=== PATIENT | female | born 1955 | race Caucasian/White ===

== ENCOUNTER 2016-07-20 09:43 | Observation (INO) | payer OTHER ==
[~2016-07-20] VITALS: Ht 167.6 cm; Wt 73.3 kg
[~2016-07-20 09:43] MED LIST: ATORVASTATIN CA40 MG PO; BACTRIM,SEPT1 TABLET PO; LEVOTHYROXINE100 MCG PO
[2016-07-20 10:35] LABS: HEMATOCRIT 37.3 % (36.0-46.0); MCH 29.6 PG (29.0-34.0); MCHC 33.5 G/DL (30.0-36.0); MCV 88.4 FL (83-99); MEAN PLAT.VOLUME 9.8 uM^3 (9.5-12.4); PLATELET COUNT 207 K/uL (156-360); RBC DIS.WIDTH-SD 41.1 % (39-53); RED BLOOD COUNT 4.22 M/uL (3.80-5.20); WHITE BLOOD COUNT 5.6 K/uL (4.1-10.2)
[2016-07-20 11:05] LABS: ANION GAP 9 MEQ/L (2-14); CHLORIDE 108 MEQ/L (99-109); POTASSIUM 3.5 MEQ/L (3.7-5.4); SAMPLE HEMOLYSIS CHECK 0; SAMPLE ICTERIC CHECK 0; SAMPLE LIPEMIA CHECK 0; SODIUM 142 MEQ/L (136-147); TOTAL BILIRUBIN 0.6 MG/DL (0.0-1.0)
[2016-07-20 11:10] LABS: ALKALINE PHOSPHATASE 89 IU/L (3-129); GFR ESTIMATE (CALCULATED) > 59 mL/min/; GLUCOSE 105 mg/dL (70-99); LIPASE 62 U/L (1.0-51.0); UREA NITROGEN (BUN) 10 mg/dL (9-23)
[2016-07-20 11:13] LABS: TROP-I INTERPRETATION NEGATIVE; TROPONIN-I < 0.01 ng/mL (0.0-0.30)
[2016-07-20 12:43] VITALS: BP 135/65
[2016-07-21] MEDS ORDERED: LO-DOSE ASPIRIN81 M2 PO (11:39)
[2016-07-21] MEDS ORDERED: DAILY VITE1 EAC1 PO (11:39)
[2016-07-21] MEDS ORDERED: LAMISIL250 MG PO (11:39)
== END 2016-07-20 12:53 | disposition left against medical advice (07) ==
LOC: EME 09:43 → EDOF 12:11
PROVIDERS: Emergency Medicine
DX: R07.9 Chest pain, unspecified (principal); R10.13 Epigastric pain; R11.0 Nausea; Z88.0 Allergy status to penicillin
CPT/HCPCS: 71020; 80053; 81003; 83690; 84484; 85027; 93005; 99281; 99284; G0378; J2405

== ENCOUNTER 2016-07-21 08:42 | Observation (INO) | payer OTHER ==
[~2016-07-21] VITALS: Ht 160 cm; Wt 77.3 kg
[2016-07-21 09:37] LABS: HEMATOCRIT 36.8 % (36.0-46.0); MCH 30.1 PG (29.0-34.0); MCHC 34.2 G/DL (30.0-36.0); MCV 87.8 FL (83-99); MEAN PLAT.VOLUME 9.5 uM^3 (9.5-12.4); PLATELET COUNT 217 K/uL (156-360); RBC DIS.WIDTH-CV 12.8 % (11.8-14.6); RED BLOOD COUNT 4.19 M/uL (3.80-5.20); WHITE BLOOD COUNT 7.4 K/uL (4.1-10.2)
[2016-07-21 09:39] LABS: CHLORIDE 110 mEq/L (99-109); POTASSIUM 3.2 mEq/L (3.7-5.4); SODIUM 144 mEq/L (136-147)
[2016-07-21 09:41] LABS: GLUCOSE 126 mg/dL (70-99)
[2016-07-21 09:42] LABS: ANION GAP 9 MEQ/L (2-14)
[2016-07-21 09:45] LABS: GFR ESTIMATE (CALCULATED) > 59 mL/min/
[2016-07-21 09:46] LABS: UREA NITROGEN (BUN) 11 mg/dL (9-23)
[2016-07-21 09:51] LABS: TROP-I INTERPRETATION NEGATIVE; TROPONIN-I < 0.01 ng/mL (0.0-0.30)
[2016-07-21 11:20] LABS: TOTAL BILIRUBIN 0.5 mg/dL (0.0-1.0)
[2016-07-21 11:21] LABS: ALKALINE PHOSPHATASE 95 IU/L (3-129)
[2016-07-21 11:23] LABS: DIRECT BILIRUBIN 0.2 mg/dL (0.0-0.3)
[2016-07-21 11:24] LABS: LIPASE 32 U/L (1.0-51.0)
[2016-07-21] MEDS ORDERED: LO-DOSE ASPIRIN81 M2 PO (11:39)
[2016-07-21] MEDS ORDERED: LAMISIL250 MG PO (11:39)
[2016-07-21] MEDS ORDERED: DAILY VITE1 EAC1 PO (11:39)
[2016-07-21 13:13] VITALS: BP 130/66
[2016-07-21 15:17] LABS: TROP-I INTERPRETATION NEGATIVE; TROPONIN-I < 0.01 ng/mL (0.0-0.30)
[2016-07-21 15:54] VITALS: BP 128/57
[2016-07-21 20:29] VITALS: BP 104/58
[2016-07-21 21:38] LABS: TROP-I INTERPRETATION NEGATIVE; TROPONIN-I 0.01 ng/mL (0.0-0.30)
[2016-07-22 00:20] VITALS: BP 119/59
[2016-07-22 05:21] VITALS: BP 119/58
[2016-07-22 08:29] LABS: ANION GAP 6 MEQ/L (2-14); CHLORIDE 107 MEQ/L (99-109); GFR ESTIMATE (CALCULATED) > 59 mL/min/; GLUCOSE 118 mg/dL (70-99); SAMPLE HEMOLYSIS CHECK 0; SAMPLE ICTERIC CHECK 0; SAMPLE LIPEMIA CHECK 0; SODIUM 138 MEQ/L (136-147); UREA NITROGEN (BUN) 12 mg/dL (9-23)
[2016-07-22 08:32] LABS: POTASSIUM 4.2 MEQ/L (3.7-5.4)
[2016-07-22 08:45] VITALS: BP 108/55; BP 109/55
[2016-07-22] MEDS ORDERED: PANTOPRAZOLE SO40 MG PO (12:13)
== END 2016-07-22 12:39 | disposition home or self-care (01) ==
LOC: EME 08:42 → EDOF 10:28 → 5WEST 12:51
PROVIDERS: Emergency Medicine; Family Medicine
DX: R07.89 Other chest pain (principal); E87.6 Hypokalemia; R10.13 Epigastric pain
CPT/HCPCS: 71020; 80048; 80076; 83690; 83880; 84484; 85027; 93005; 99281; 99284; G0378; J2270; J2405